=== PATIENT | male | born 1995 | race Caucasian/White ===

== ENCOUNTER 2017-05-26 06:03 | Emergency (ER) | payer OTHER ==
[2017-05-26 06:26] VITALS: BP 110/70; TEMP 99.1; BMI 30.5
--- NOTE | 2017-05-26 07:28 | PDOC ---
History of Present Illness - General Chief Complaint: Ear Problem Stated Complaint: EARACHE History Source: Patient Exam Limitations: No Limitations - History of Present Illness Initial Comments: 05/26/17 07:23 Patient is a 21 y/o m employee of [employer] presents with pain to the right ear. Started as a dull pain, then he felt a "pop" now with persistent pain. Denies trauma, no fever. Timing/Duration: 24 hours Severity: moderate Associated Symptoms: denies: fever/chills, headaches, loss of appetite, malaise , weakness Past History - Past Medical History Allergies/Adverse Reactions: Allergies Allergy/AdvReac Type Severity Reaction Status Date / Time No Known Allergies Allergy Verified 05/26/17 06:25 Home Medications: Ambulatory Orders Amoxicillin - [Amoxicillin 875mg Tablet -] 875 mg PO BID #14 tab 05/26/17 Asthma: (childhood) COPD: No - Suicide/Smoking/Psychosocial Hx Smoking History: Never smoked Review of Systems - Review of Systems Constitutional: No: Fever HEENTM: Yes: Ear Pain. No: Ear Discharge, Nose Congestion, Dental Problems, Difficulty Swallowing, Mouth Swelling Respiratory: No: Symptoms reported, Cough Cardiac (ROS): No: Symptoms Reported Musculoskeletal: No: Symptoms Reported Integumentary: No: Symptoms Reported Hematologic/Lymphatic: No: Symptoms Reported All Other Systems: Reviewed and Negative *Physical Exam - Vital Signs Last Vital Signs Temp Pulse Resp BP Pulse Ox 99.1 F 110 H 18 110/70 99 05/26/17 06:25 05/26/17 06:25 05/26/17 06:25 05/26/17 06:25 05/26/17 06:25 - Physical Exam General Appearance: Yes: Appropriately Dressed. No: Apparent Distress HEENT: negative: Pharyngeal Erythema, Tonsillar Exudate, Tonsillar Erythema, Nasal Congestion, TM Bulging, TM Dull, TM Erythema Neck: negative: Tender, Tender lateral, Tender midline Respiratory/Chest: positive: Lungs Clear, Normal Breath Sounds. negative: Respiratory Distress, Accessory Muscle Use Cardiovascular: positive: Regular Rhythm, Regular Rate Gastrointestinal/Abdominal: positive: Normal Bowel Sounds, Soft. negative: Tender Lymphatic: negative: Adenopathy Integumentary: positive: Normal Color, Dry. negative: Rash Neurologic: positive: Alert, Normal Mood/Affect Medical Decision Making - Medical Decision Making 05/26/17 07:44 A/P: Patient with right ruptured TM will discharge on amoxicillin follow-up with ENT. Motrin for pain. *DC/Admit/Observation/Transfer Diagnosis at time of Disposition: Perforated eardrum Qualifiers: Laterality: right Qualified Code(s): H72.91 - Unspecified perforation of tympanic membrane, right ear - Discharge Dispostion Disposition: HOME Condition at time of disposition: Stable Admit: No - Prescriptions Prescriptions: Amoxicillin - [Amoxicillin 875mg Tablet -] 875 mg PO BID #14 tab - Referrals Referrals: Nando Akhtar MD [Staff Physician] - - Patient Instructions Printed Discharge Instructions: Middle Ear Infection Additional Instructions: Please take motrin for pain. Follow up with ENT if pain persists. - Post Discharge Activity Forms/Work/School Notes: Back to Work
[2017-05-26 08:02] VITALS: PULSE 98
== END 2017-05-26 08:01 | disposition home or self-care (01) ==
LOC: JER 06:03
DX: H72.91 Unspecified perforation of tympanic membrane, right ear (principal)
CPT/HCPCS: 99281-25